=== PATIENT | male | born 1965 | race Caucasian/White ===

== ENCOUNTER 2025-05-04 07:11 | Day surgery (SDC) | payer OTHER, SELFPAY ==
[2025-04-28 09:15] VITALS: BMI 51.5
[2025-05-04] VITALS (14 sets, daily range): BP systolic 126–151; BP diastolic 63–78; PULSE 60–81; RESP 10–18; TEMP 36.1–36.7; O2SAT 92–98; BMI 50.7
--- NOTE | 2025-05-04 | DI.RAD.S_ITS ---
PROCEDURE: XR CALCANEOUS LT MIN 2V INDICATIONS: Left ankle debridement and achilles repair TECHNIQUE: Single lateral digital radiograph the posterior calcaneus was acquired. COMPARISON: None. FINDINGS: Bones: Mild irregularity posterior cortex of the calcaneus likely reflects surgical debridement change. Soft tissues: Mild soft swelling over the posterior calcaneus with scattered calcifications IMPRESSION: Postsurgical findings Dictated by: Alexis Hooks M.D. on 05/05/2025 at 7:17 Approved by: Alexis Hooks M.D. on 05/05/2025 at 7:18
--- NOTE | 2025-05-04 06:00 | EKG_ITS ---
[address] [address] Test Date: 2025-05-04 Pat Name: Tito Sanchez Department: Room: Gender: Male Tennis Coach: Conrad TIERNEY : 1965 Requested By: Order Number: [id number] Reading MD: Alexis Ogden MD Measurements Intervals [place] Rate: 58 P: 65 [place]: 242 QRS: 25 QRSD: 108 T: 21 QT: 406 QTc: 398 Interpretive Statements Sinus bradycardia with 1st degree AV block Electronically Signed On 05-04-2025 8:12:19 PDT by Alexis Ogden MD
[2025-05-04 08:06] LABS: Hematocrit 39.3 % (41-53); Hemoglobin 13.2 g/dL (13.5-17.5); Mean Corpuscular HGB Conc 33.5 % (30-36); Mean Corpuscular Hemoglobin 25.8 PG (26-34); Mean Corpuscular Volume 77.0 fL (80-100); Platelet Count 225 X10^3/uL (150-400)
[2025-05-04] MEDS: LACTATED RINGERS 1,000 ML 42 ML IV (08:09)
[2025-05-04] MEDS: ACETAMINOPHEN 325 MG TABLET 975 MG PO (08:10)
[2025-05-04 08:16] LABS: Blood Urea Nitrogen 15 mg/dL (9-20); Calcium 9.0 mg/dL (8.4-10.2); Carbon Dioxide 27 mmol/L (22-32); Chloride 102 mmol/L (98-107); Estimated Glomerular Filt Rate > 60 mL/min (>60); Glucose 124 mg/dL (70-99); HEMOLYSIS < 15 (0-50); Potassium 4.0 mmol/L (3.4-5.1); Sodium 138 mmol/L (137-145)
--- NOTE | 2025-05-04 08:18 | PM.PREOP ---
Pre-operative Note Interval Note History & Physical reviewed/Exam performed by Physician: Yes Changes to H&P: No
--- NOTE | 2025-05-04 08:29 | PM.OP.1 ---
Operative Date/Time/Diagnoses Date of procedure: 05/04/25 Time of procedure: 08:50 Pre-op diagnosis: Insertional Achilles tendinosis left, tightness gastroc muscles left, BMI 50 Post-op diagnosis: same Procedure & Clinicians Procedure: Repair insertional Achilles tendon left secondary CPT code 29237 Gastroc recession separate incision left CPT code 89291 modifier 59 for separate incision Modifier 22--procedure was performed with a modifier 22 for BMI 50--accounting for additional complexity assistance see and positioned evening, exposure and depth of additional dissection culminating to approximately twice as long as a standard Achilles repair. Modifier 54 Same procedure(s) as scheduled: Yes Indications: The patient is a 59-year-old gentleman with chronic Achilles tendinopathy aggravated by an at work injury. He has failed conservative treatment he has been indicated for secondary insertional Achilles tendon repair and a gastroc recession for his a gastroc contracture that has failed extensive conservative treatment. The risks and benefits of the procedure have been discussed with the patient and given the opportunity to ask questions. The risks of surgery include but are not limited to infection, malunion, nonunion, persistence of pain, damage to nerves and blood vessels, posttraumatic arthritis, DVT, PE, cardiopulmonary complications and . The patient expressed a thorough understanding of the risks and benefits of surgery and has elected to proceed. Consent was signed. Surgeon: Radha Kwan Click Yes if Unassisted: Yes Anesthesia Type: Peripheral nerve block and Local Operative Notes Findings: Insertional Achilles tendinosis calcaneal spur and gastroc contracture. Gastroc contracture was addressed with a separate incision for a gastroc recession. Insertional Achilles tendinosis was dressed with debridement and secondary repair. Specimen(s): none sent Prosthetic devices, grafts, tissues, transplants, or devices: Arthrex MIS SpeedBridge system anchors Applied: other (Splint) Estimated Blood Loss (mL): 10 Blood products transfused: none Tourniquet time (min): 72 Procedure in detail: Patient was seen in the preoperative area the site of surgery was marked informed consent confirmed. This was the left ankle and foot. The patient was seen by the anesthesiologist and a regional block was placed for postoperative pain control. The patient was brought to the operating room and general anesthesia was administered. The patient was then positioned prone on the operative table. All bony prominences were well padded. A well-padded thigh tourniquet was placed. Left lower extremity was prepped and draped in standard sterile fashion a formal time-out procedure was performed confirming the patient's side and site of surgery administration of appropriate preoperative antibiotic. All were in agreement. The Esmarch was used for exsanguination and the tourniquet raised on the thigh to 250 mmHg. Attention was turned to the insertion of the Achilles on the heel. The outline of the Achilles tendon was marked out. The planned portal incisions for the minimally invasive technique at 2,5.7 and 10 were marked out. Portal incisions were made full-thickness with a blade. Next elevators were used to create working portals between the calcaneus and the Achilles and then with a [place] elevator between the Achilles in the skin. Once the working area was established between the Achilles and the heel the conical bur was placed through the distal portal and used in a sweeping fashion under direct fluoroscopic guidance to take down the posterior spur and Lewis area to create a good footprint for the Achilles secondary repair. This was finished through the proximal portals to round off the proximal aspect of the bony resection. Care was taken to make sure the bony debris slurry was irrigated and switched out of the tissue and this was verified under fluoroscopic guidance. Once this was complete the K-wires for the distal row fixation were drilled into the heel checked on lateral and axial fluoroscopic x-rays for appropriate alignment then these were overdrilled and tapped. Then attention was turned to the proximal row. These were drilled under fluoroscopic guidance and then the FiberTak anchors were applied medially and laterally proximally. The fiber tape sutures on the needle was then brought from deep through the Achilles tendon and out the skin medially and laterally. The free needle was used to take the working sutures from deep out the skin just distal and outside the FiberTape stitches medially and laterally. Next the hook was used to take the working stitches between the skin and Achilles tendon out the medial and lateral portals. Then a hemostat was used to pass the working stitch with the annita from medial to lateral and the other 1 from lateral to medial. Then the rip stop was completed by placing it through the loop and then pulling on the #stitch medially and repeating the same thing laterally. Once these were both passed the rip stops were secured and the sutures cut. Then the needles were cut off the FiberTapes. The hooks were used to bring the FiberTapes into the level between the Achilles tendon and the skin out the medial and lateral portals and in the banana Passer was used to bring 1 of each of the FiberTapes from medial and lateral out the distal holes in the crossing standard SpeedBridge pattern. Once these were out these were loaded onto the SwiveLock and then fixed into the calcaneus holes carefully following the trajectory from the distal guidewires. These were made sure that they were countersunk to avoid prominence. Once this was complete the secured the Achilles tendon minimally invasive SpeedBridge technique. And this was tested under range of motion there was no gapping. A separate incision was made for the gastroc recession that there was a gastroc contracture demonstrated by increased dorsiflexion significantly with the knee flexion versus extension. An incision approximately 14 cm above the Achilles insertion was made just medial to midline on the calf at the confluence of the gastroc musculature. This was taken down through the skin subcutaneous tissue to the level of the gastroc fascia. The gastroc fascia was exposed. Care was taken to protect the neurovascular bundle. The gastroc fascia was incised selectively preserving the underlying muscle and creating a 2 cm gastroc stretch after which the ankle range of motion responded appropriately with 10? of dorsiflexion with the knee extended. This wound was irrigated and closed with 4-0 Monocryl and 3-0 nylon suture. The wound was carefully irrigated. Tourniquet was released hemostasis was achieved. Closure of the skin with 3-0 nylon suture. A well-padded dressing with Xeroform gauze Webril and a posterior splint in resting plantar flexion was applied. Patient was then awoken from anesthesia and taken to the recovery unit in good condition there were no immediate complications with the procedure. All counts were correct. Complications: none Post-operative Condition: stable Disposition: PACU Plan for aftercare: Nonweightbearing or touchdown for balance for 2 weeks. Once incisions are healed we will start progressive weight-bearing in the boot after 1st visit in clinic. We will use aspirin for DVT prophylaxis for 6 weeks. Overall protocol we will be physical therapy once the wounds are stable usually about 4 weeks postop transitioning from the boot to a shoe with a 3 8 since lift between 6 and 8 weeks postop and full returned to recreation allowed at 3 months or depending on patient's comfort level.
--- NOTE | 2025-05-04 08:59 | SUR.PREOP ---
Block start time [844] . Time out completed at 837.Monitoring initiated and maintained throughout procedure. Oxygen and medications given per anesthesiologist instructions. Patient remained stable throughout procedure, no adverse reactions noted. Block end time [854].
--- NOTE | 2025-05-04 09:38 | SUR.OPER ---
Prone on padded OR bed with bed extensions bilateral at chest, hips, and legs, head in foam head support, gel chest rolls, gel pad under knees, pillow under lower legs, toes free of pressure, arms secured on padded arm boards at <90 degrees abduction. Safety belt at thigh and shoulders.
[2025-05-04] MEDS: BUPivacaine 0.25% W/ EPI (PF) 30 ML VIAL 60 ML INJ (09:42)
--- NOTE | 2025-05-04 09:43 | SUR.OPER ---
Equipment: Minimally Invasive Bur brought by rep.
[2025-05-04] MEDS: BENZOCAINE/MENTHOL 1 LOZ PKT 1 EACH PO (11:51)
== END 2025-05-04 12:50 | disposition home or self-care (01) ==
PROVIDERS: Student in an Organized Health Care Education/Training Program; PCP Family Medicine; Referring Provider Nurse Practitioner Primary Care; Visit Provider Orthopaedic Surgery Foot and Ankle Surgery
PROC: (CPT 27650; principal; 2025-05-04 08:45)
DX: M76.62 Achilles tendinitis, left leg (principal); M62.462 Contracture of muscle, left lower leg; M77.32 Calcaneal spur, left foot; G89.18 Other acute postprocedural pain; I10 Essential (primary) hypertension; G47.33 Obstructive sleep apnea (adult) (pediatric); E03.9 Hypothyroidism, unspecified
CPT/HCPCS: 27654; 27687; 64450; 73650; 76000; 80048; 85027; 93005; 93010; C1713; J0330; J0690; J1100; J1885; J2405; J2704; J3010